=== PATIENT | female | born 1945 | race Caucasian/White ===

== ENCOUNTER 2024-04-13 19:42 | Emergency (ER) | payer OTHER ==
[2024-04-13] MEDS ORDERED: NA CHLORIDE 0.9% 1,000 ML ONE (20:41)
[2024-04-13 20:57] LABS: Absolute Basophils 0.1 K/uL (0-0.5); Absolute Eosinophils 0.2 K/uL (0-0.5); Absolute Lymphocytes (CBC) 3.2 K/uL (0.7-4.9); Absolute Monocytes 0.9 K/uL (0.1-1.3); Absolute Neutrophil 5.7 K/uL (1.8-8.0); Basophils % 0.7 % (0-1.3); Eosinophils % 1.6 % (0-4.4); Hematocrit 40.4 % (36.0-45.0); Hemoglobin 13.4 g/dL (12.0-15.0); Lymphocytes % 32.2 % (15.3-44.8); MCH 30.2 pg (27.0-35.0); MCHC 33.1 g/dL (32.0-36.0); MCV 91.4 fL (80-100); MPV 9.2 fL (7.6-11.3); Monocytes % 9.2 % (3.3-12.3); Neutrophils % 56.3 % (41.7-73.7); Nucleated Red Blood Cells % 0.1 % (0-0); Platelets 208 thou/uL (152-406); RBC Red Blood Cell Count 4.42 M/uL (3.86-4.86); Red Cell Distribution Width 15.4 % (12.1-15.2)
[2024-04-13 21:14] LABS: ALT/SGPT 26 U/L (13-56); Albumin 3.7 g/dL (3.4-5.0); Albumin/Globulin Ratio 1.1 (1.1-1.8); Alkaline Phosphatase 72 U/L (45-117); Anion Gap 7.8 mEq/L (5.0-15.0); BUN Blood Urea Nitrogen 19 mg/dL (7-18); Bicarbonate 26 mEq/L (21-32); Bilirubin Total 0.4 mg/dL (0.2-1.0); Globulin 3.4 g/dL (2.3-3.5); Glomerular Filtration Rate 47 ml/min (=/>90); Glucose Level 102 mg/dL (74-106); Potassium 3.8 mEq/L (3.5-5.1); Protein, Total 7.1 g/dL (6.4-8.2); Sodium Level 140 mEq/L (136-145)
[2024-04-13 21:18] LABS: AST/SGOT < 10 U/L (15-37)
[2024-04-13] MEDS ORDERED: TOBRAMYCIN SULF 0.3% OPTH OINT ONE (21:31)
[2024-04-13] MEDS ORDERED: SMZ./TMP. 800/160 MG TABLET ONE (21:31)
[2024-04-13] MEDS ORDERED: CLINDAMYCIN 900MG/D5W 900 MG/50 ML IVPB IV ONE (21:31)
--- NOTE | 2024-04-13 21:43 | RAD REPORT ---
EXAM DESCRIPTION: CTMaxillofacial W/Cont04/13/2024 9:31 pm CLINICAL HISTORY: Right facial pain and swelling COMPARISON: None. TECHNIQUE: Computed axial tomography of the face obtained with coronal and sagittal reconstruction. 50 cc Isovue-[address] scans are performed using dose optimization technique as appropriate and may include automated exposure control or mA/KV adjustment according to patient size. FINDINGS: Right periorbital stranding. An abscess is not seen. The right globe is normal size and density. No retrobulbar abscess. The parotid and visualized submandibular glands are unremarkable The parapharyngeal fat is clear. No fluid within the sinuses IMPRESSION: Right periorbital cellulitis. An abscess is not seen
--- NOTE | 2024-04-13 22:31 | EDPHYS ---
Physician Documentation [facility] Name: Malgorzata Vizcarra Age: 78 yrs Sex: Female : 1945 Arrival Date: 04/13/2024 Time: 19:42 Bed 11 Private MD: Lee Edmonds HPI: 04/13 22:24 This 78 yrs old Female presents to ER via Ambulatory with complaints of jenn Facial Swelling. 22:24 The patient is experiencing pain, redness, The patient sustained Unknown. to the right jenn eye. Onset: The symptoms/episode began/occurred 5 day(s) ago. Duration: the symptoms are continuous. Aggravated by closing eye, pressure, rubbing, Alleviated by cold application. Associated signs and symptoms: Pertinent positives: None. Pertinent negatives: None. The patient presents with cellulitis of the face and right eye, the patient presents with a swollen area of the right eye. Description: erythematous, fluctuant. Modifying factors: the symptoms are alleviated by remaining still, the symptoms are aggravated by pressure, touching. Historical: - Allergies: 20:02 No Known Allergies; al5 - Home Meds: 20:02 gabapentin 600 mg oral tablet 3 times per day [Active]; ropinirole 2 mg oral tablet 3 al5 times per day [Active]; atorvastatin 40 mg oral tablet 1 tab every evening [Active]; fenofibrate 160 mg oral tablet daily [Active]; oxybutynin chloride 5 mg oral tablet 1 tab 2 times per day [Active]; - PMHx: 20:02 high cholesterol; restless leg syndrome; al5 - Immunization history:: Adult Immunizations up to date. - Infectious Disease History:: Denies. - Social history:: Smoking status: Patient reports the use of cigarette tobacco products, smokes one pack cigarettes per day. - Family history:: not pertinent. ROS: 22:24 Constitutional: Negative for fever, chills, and weight loss, ENT: Negative for injury, jenn pain, and discharge, Neck: Negative for injury, pain, and swelling, Cardiovascular: Negative for chest pain, palpitations, and edema, Respiratory: Negative for shortness of breath, cough, wheezing, and pleuritic chest pain, Abdomen/GI: Negative for abdominal pain, nausea, vomiting, diarrhea, and constipation, Back: Negative for injury and pain, : Negative for injury, bleeding, discharge, and swelling, MS/Extremity: Negative for injury and deformity, Neuro: Negative for headache, weakness, numbness, tingling, and seizure, Psych: Negative for depression, anxiety, suicide ideation, homicidal ideation, and hallucinations, Allergy/Immunology: Negative for hives, rash, and allergies, Endocrine: Negative for neck swelling, polydipsia, polyuria, polyphagia, and marked weight changes, Hematologic/Lymphatic: Negative for swollen nodes, abnormal bleeding, and unusual bruising, 22:24 Eyes: Positive for pain, redness, of the right eyebrow, right upper eyelid and right lower eyelid, Exam: 22:24 Constitutional: This is a well developed, well nourished patient who is awake, alert, jenn and in no acute distress. ENT: Nares patent. No nasal discharge, no septal abnormalities noted. Tympanic membranes are normal and external auditory canals are clear. Oropharynx with no redness, swelling, or masses, exudates, or evidence of obstruction, uvula midline. Mucous membranes moist. Neck: Trachea midline, no thyromegaly or masses palpated, and no cervical lymphadenopathy. Supple, full range of motion without nuchal rigidity, or vertebral point tenderness. No Meningismus. Chest/axilla: Normal chest wall appearance and motion. Nontender with no deformity. No lesions are appreciated. Cardiovascular: Regular rate and rhythm with a normal S1 and S2. No gallops, murmurs, or rubs. Normal PMI, no JVD. No pulse deficits. Respiratory: Lungs have equal breath sounds bilaterally, clear to auscultation and percussion. No rales, rhonchi or wheezes noted. No increased work of breathing, no retractions or nasal flaring. Abdomen/GI: Soft, non-tender, with normal bowel sounds. No distension or tympany. No guarding or rebound. No evidence of tenderness throughout. Back: No spinal tenderness. No costovertebral tenderness. Full range of motion. Skin: Warm, dry with normal turgor. Normal color with no rashes, no lesions, and no evidence of cellulitis. MS/ Extremity: Pulses equal, no cyanosis. Neurovascular intact. Full, normal range of motion. Neuro: Awake and alert, GCS 15, oriented to person, place, time, and situation. Cranial nerves II-XII grossly intact. Motor strength 5/5 in all extremities. Sensory grossly intact. Cerebellar exam normal. Normal gait. Psych: Awake, alert, with orientation to person, place and time. Behavior, mood, and affect are within normal limits. 22:24 Eyes: Periorbital structures: cellulitis, that is moderate, on the right upper eyelid, medial canthus of right eye, lateral canthus of right eye and right lower eyelid, erythema, swelling, Pupils: no acute changes, equal, round, and reactive to light and accomodation, Extraocular movements: intact throughout, Conjunctiva: normal, Corneas: are normal, Sclera: no appreciated abnormality, Lids and lashes: appear normal, Vital Signs: 19:56 BP 138 / 86; Pulse 78; Resp 16; Temp 98.7; Pulse Ox 91% on R/A; Weight 67.13 kg; Height al5 5 ft. 3 in. ; 22:44 BP 122 / 70; Pulse 66; Resp 16; Temp 97.9(TE); Pulse Ox 95% on R/A; tl4 19:56 Body Mass Index 26.22 (67.13 kg, 160.02 cm) al5 MDM: 20:16 Patient medically screened. [facility] 22:27 Differential diagnosis: abscess, allergic reaction, cellulitis, insect bite. Data [facility] reviewed: vital signs, nurses notes, lab test result(s), radiologic studies, CT scan. Consideration of Admission/Observation Escalation of care including admission/observation considered. I considered the following discharge prescriptions or medication management in the emergency department Medications were administered in the Emergency Department. See MAR. Independent interpretation of the following test(s) in the Emergency Department CT Scan: My interpretation is ct facial, no abscess. Test considered but Not performed: Ultrasound no usg. Care significantly affected by the following chronic conditions: high chlesterol, rls. 04/13 20:17 Order name: CBC with Diff; Complete Time: 21:07 [facility] 04/13 20:17 Order name: Comprehensive Metabolic Panel; Complete Time: 21:46 [facility] 04/13 20:17 Order name: CT Maxillofacial W/cont; Complete Time: 21:46 jenn Administered Medications: 20:50 Drug: NS 0.9% IV 1000 ml IV at 1 bolus Per protocol; 1000 mL bolus Route: IV; Rate: 1 ha1 bolus; Site: right antecubital; Delivery: Primary tubing; 22:43 Follow up: Response: No adverse reaction; IV Status: Completed infusion; IV Intake: tl4 1000ml 21:47 Drug: Tobramycin Ophthalmic Ointment (0.3 %) 1 inches Ophthalmic once Route: tl4 Ophthalmic; Site: right eye; 22:43 Follow up: Response: No adverse reaction tl4 21:47 Drug: Clindamycin IVPB 900 mg IVPB once over 30 mins; (mix in 50 mL) Route: IVPB; Rate: tl4 100 ml/hr; Infused Over: 30 mins; Site: right antecubital; Delivery: Primary tubing; 22:43 Follow up: Response: No adverse reaction; IV Status: Completed infusion; IV Intake: [id number] 21:47 Drug: Trimethoprim-Sulfamethoxazole PO (160 mg-800 mg (DS) 1 tablet PO once Route: PO; tl4 22:43 Follow up: Response: No adverse reaction tl4 22:42 Drug: Clindamycin PO 300 mg PO once Route: PO; tl4 22:42 Follow up: Response: No adverse reaction; Medication administered at discharge. tl4 Disposition Summary: 04/13/24 22:31 Discharge Ordered Notes: Location: Home [facility] Problem: new jenn Symptoms: have improved jenn Condition: Stable jenn Diagnosis - Cellulitis and acute lymphangitis of face - right eye , preseptal cellulitis jenn Followup: jenn - With: Private Physician - When: 2 - 3 days - Reason: Recheck today's complaints, Continuance of care, Re-evaluation by your physician Followup: jenn - With: Oumar Dyer MD - When: 2 - 3 days - Reason: Recheck today's complaints, Re-evaluation by your physician Discharge Instructions: - Discharge Summary Sheet jenn - Cellulitis, Adult jenn - Cellulitis, Adult, [id number] [facility] - Preseptal Cellulitis, Adult [facility] Forms: - Medication Reconciliation Form [facility] - Antibiotic Education jenn - Prescription Opioid Use jenn - Patient Portal Instructions [facility] - Leadership Thank You Letter [facility] Prescriptions: - Tobrex 0.3 % Ophthalmic ointment - instill 1 application OPHTHALMIC route every day at bedtime for 7 days; 3.5 jenn gram; Refills: 0, Product Selection Permitted - Clindamycin HCl 300 mg Oral Capsule - take 1 capsule ORAL route every 6 hours for 10 days; 40 capsule; Refills: 0, jenn Product Selection Permitted - Bactrim DS 800-160 mg Oral Tablet - take 1 tablet ORAL route every 12 hours for 10 days; 20 tablet; Refills: 0, jenn Product Selection Permitted Signatures: Dispatcher [employer] Lee Garay MD MD cha Ayala, Heidy, RN RN ha1 Larry Sherwood RN RN tl4 Althea Bonds RN RN al5
--- NOTE | 2024-04-13 22:31 | ER ---
Nurse's Notes [facility] Name: Malgorzata Vizcarra Age: 78 yrs Sex: Female : 1945 Arrival Date: 04/13/2024 Time: 19:42 Bed 11 Private MD: Diagnosis: Cellulitis and acute lymphangitis of face-right eye , preseptal cellulitis Presentation: 04/13 19:56 Chief complaint: Patient states: c/o facial swelling to R side of face around eye area. al5 Pt states that she was watching television, then went outside and felt and realized a big bump form around her eye. Pt states it has been getting progressively worse. Pt denies any allergies or being bit by any bugs. Coronavirus screen: At this time, the client does not indicate any symptoms associated with coronavirus-19. Ebola Screen: No symptoms or risks identified at this time. Initial Sepsis Screen: Does the patient meet any 2 criteria? No. Patient's initial sepsis screen is negative. Does the patient have a suspected source of infection? No. Patient's initial sepsis screen is negative. Risk Assessment: Do you want to hurt yourself or someone else? Patient reports no desire to harm self or others. Onset of symptoms was April 12, 2024. 19:56 Method Of Arrival: Ambulatory al5 19:56 Acuity: IVORY 3 al5 Triage Assessment: 20:07 General: Appears in no apparent distress. Behavior is calm, cooperative. Pain: al5 Complains of pain in right eye Pain currently is 7 out of 10 on a pain scale. Pain began last night Is continuous. EENT: Eyes swelling around R eye starting last night, patient states it is very tender and sore, about 7/10 pain. Neuro: No deficits noted. Level of Consciousness is awake, alert, obeys commands, Oriented to person, place, time, situation, Gait is steady, Speech is normal, Facial symmetry appears normal. Cardiovascular: No deficits noted. Patient's skin is warm and dry. Respiratory: No deficits noted. Airway is patent Trachea midline Respiratory effort is even, unlabored, Respiratory pattern is regular, symmetrical. GI: No deficits noted. No signs and/or symptoms were reported involving the gastrointestinal system. : No deficits noted. No signs and/or symptoms were reported regarding the genitourinary system. Derm: Skin is intact, Skin is pink, warm \T\ dry. normal, Skin temperature is warm. Musculoskeletal: No deficits noted. No signs and/or symptoms reported regarding the musculoskeletal system. Historical: - Allergies: 20:02 No Known Allergies; al5 - Home Meds: 20:02 gabapentin 600 mg oral tablet 3 times per day [Active]; ropinirole 2 mg oral tablet 3 al5 times per day [Active]; atorvastatin 40 mg oral tablet 1 tab every evening [Active]; fenofibrate 160 mg oral tablet daily [Active]; oxybutynin chloride 5 mg oral tablet 1 tab 2 times per day [Active]; - PMHx: 20:02 high cholesterol; restless leg syndrome; al5 - Immunization history:: Adult Immunizations up to date. - Infectious Disease History:: Denies. - Social history:: Smoking status: Patient reports the use of cigarette tobacco products, smokes one pack cigarettes per day. - Family history:: not pertinent. Screenin:52 [facility] ED Fall Risk Assessment (Adult) History of falling in the last 3 months, ha1 including since admission No falls in past 3 months (0 pts) Confusion or Disorientation No (0 pts) Intoxicated or Sedated No (0 pts) Impaired Gait No (0 pts) Mobility Assist Device Used No (0 pt) Altered Elimination No (0 pt) Score/Fall Risk Level 0 - 2 = Low Risk Oriented to surroundings, Maintained a safe environment, Educated pt \T\ family on fall prevention, incl call for assistance when getting out of bed, Assessed \T\ reinforced patient's understanding of fall precautions. Abuse screen: Denies threats or abuse. Denies injuries from another. Nutritional screening: No deficits noted. Tuberculosis screening: No symptoms or risk factors identified. Assessment: 20:51 General: Appears in no apparent distress. Behavior is calm, cooperative. Pain: ha1 Complains of pain in right eye. Neuro: Level of Consciousness is awake, alert, obeys commands, Oriented to person, place, time, situation, Moves all extremities. Full function Gait is steady, Speech is normal. Cardiovascular: Capillary refill < 3 seconds Patient's skin is warm and dry. Respiratory: Airway is patent Respiratory effort is even, unlabored, Respiratory pattern is regular, symmetrical, Breath sounds are clear bilaterally. GI: No signs and/or symptoms were reported involving the gastrointestinal system. : No signs and/or symptoms were reported regarding the genitourinary system. EENT: No signs and/or symptoms were reported regarding the EENT system. Derm: Skin is red. Musculoskeletal: No signs and/or symptoms reported regarding the musculoskeletal system. 22:44 Reassessment: Patient and/or family updated on plan of care and expected duration. Pain tl4 level reassessed. Patient is alert, oriented x 3, equal unlabored respirations, skin warm/dry/pink. Vital Signs: 19:56 BP 138 / 86; Pulse 78; Resp 16; Temp 98.7; Pulse Ox 91% on R/A; Weight 67.13 kg; Height al5 5 ft. 3 in. ; 22:44 BP 122 / 70; Pulse 66; Resp 16; Temp 97.9(TE); Pulse Ox 95% on R/A; tl4 19:56 Body Mass Index 26.22 (67.13 kg, 160.02 cm) al5 ED Course: 19:45 Patient arrived in ED. ra3 20:02 Triage completed. al5 20:10 Arm band placed on right wrist. Patient placed in an exam room, on a stretcher. al5 20:16 Lee Johnson MD is Attending Physician. jenn 20:50 Tiffanie Grimm RN is Primary Nurse. ha1 20:51 Comprehensive Metabolic Panel Sent. ha1 20:51 CBC with Diff Sent. ha1 20:52 Patient has correct armband on for positive identification. Bed in low position. Call ha1 light in reach. Side rails up X 1. Adult w/ patient. Provided Education on: ed process, call del real. Client placed on continuous cardiac and pulse oximetry monitoring. NIBP monitoring applied. Door closed. Noise minimized. Moved to private room. Warm blanket given. Pillow given. 20:53 No provider procedures requiring assistance completed. Initial lab(s) drawn, by ky, ha1 sent to lab. Inserted saline lock: 22 gauge in right antecubital area, using aseptic technique. Blood collected. 21:33 CT Maxillofacial W/cont In Process Unspecified. EDMS 22:30 Oumar Dyer MD is Referral Physician. jenn 22:44 IV discontinued, intact, bleeding controlled, No redness/swelling at site. Pressure tl4 dressing applied. Administered Medications: 20:50 Drug: NS 0.9% IV 1000 ml IV at 1 bolus Per protocol; 1000 mL bolus Route: IV; Rate: 1 ha1 bolus; Site: right antecubital; Delivery: Primary tubing; 22:43 Follow up: Response: No adverse reaction; IV Status: Completed infusion; IV Intake: tl4 1000ml 21:47 Drug: Tobramycin Ophthalmic Ointment (0.3 %) 1 inches Ophthalmic once Route: tl4 Ophthalmic; Site: right eye; 22:43 Follow up: Response: No adverse reaction tl4 21:47 Drug: Clindamycin IVPB 900 mg IVPB once over 30 mins; (mix in 50 mL) Route: IVPB; Rate: tl4 100 ml/hr; Infused Over: 30 mins; Site: right antecubital; Delivery: Primary tubing; 22:43 Follow up: Response: No adverse reaction; IV Status: Completed infusion; IV Intake: [id number] 21:47 Drug: Trimethoprim-Sulfamethoxazole PO (160 mg-800 mg (DS) 1 tablet PO once Route: PO; tl4 22:43 Follow up: Response: No adverse reaction tl4 22:42 Drug: Clindamycin PO 300 mg PO once Route: PO; tl4 22:42 Follow up: Response: No adverse reaction; Medication administered at discharge. tl4 Medication: 20:52 VIS not applicable for this client. ha1 Intake: 22:43 IV: 50ml; Total: 50ml. tl4 22:43 IV: 1000ml; Total: 1050ml. tl4 Outcome: 22:31 Discharge ordered by . jenn 22:44 Discharged to home ambulatory, with family, tl4 22:44 Condition: stable 22:44 Discharge instructions given to patient, family, Instructed on discharge instructions, follow up and referral plans. medication usage, Demonstrated understanding of instructions, follow-up care, medications, Prescriptions given X 3, 22:45 Patient left the ED. tl4 Signatures: Dispatcher [employer] EDLee Puente MD MD cha Ayala, Heidy RN RN ha1 Larry Sherwood RN RN tl4 Lauren Shepherd ra3 Althea Bonds RN RN al5
[2024-04-13 23:18] VITALS: BP 122/70; TEMP 97.9; O2SAT 95
== END 2024-04-13 22:45 | disposition home or self-care (01) ==
LOC: ER 19:42
DX: L03.213 Periorbital cellulitis (principal); L03.212 Acute lymphangitis of face; F17.210 Nicotine dependence, cigarettes, uncomplicated
CPT/HCPCS: 96365; 96361; 85025; 36415; 80053; 70487; 99284; Q9967; J7030

== ENCOUNTER 2024-07-18 16:36 | Emergency (ER) | payer OTHER ==
--- NOTE | 2024-07-18 17:03 | EDPHYS ---
Physician Documentation [facility] Name: Malgorzata Vizcarra Age: 79 yrs Sex: Female : 1945 Arrival Date: 07/18/2024 Time: 16:36 Bed IW1 Private MD: ED Physician Ralph Licona HPI: 07/18 16:52 This 79 yrs old Female presents to ER via Ambulatory with complaints of Laceration - rn LRF. 16:52 The patient has a laceration related to: handling glass. The laceration(s) is(are) rn located on the dorsal aspect of middle phalanx of left ring finger. Onset: The symptoms/episode began/occurred 2 day(s) ago. The patient has not experienced similar symptoms in the past. 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 Injury was 2 days ago. She put a butterfly bandage and has been putting Neosporin on it. Noticed increased redness and swelling today, no fever, no drainage. Sent to the ER for further evaluation.. Historical: - Allergies: 16:46 No Known Allergies; tm6 - PMHx: 16:46 High Cholesterol; restless leg syndrome; tm6 - PSHx: 16:46 shoulder (restless leg syndrome); knee (restless leg syndrome); right foot (restless tm6 leg syndrome); Total abdominal hysterectomy; Cholecystectomy; - Immunization history:: Client reports receiving the 2nd dose of the Covid vaccine. - Infectious Disease History:: Denies. - Social history:: Smoking status: Patient reports the use of cigarette tobacco products, smokes one pack cigarettes per day. Patient uses Patient/guardian denies using alcohol. - Family history:: not pertinent. - Hospitalizations: : No recent hospitalization is reported. ROS: 16:52 Constitutional: Negative for fever, chills, and weight loss, MS/Extremity: Positive for rn laceration and swelling to the left ring finger Exam: 16:52 Constitutional: This is a well developed, well nourished patient who is awake, alert, rn and in no acute distress. MS/ Extremity: Pulses equal, no cyanosis. Neurovascular intact. 3 cm chevron shaped laceration to the dorsum of the left ring finger middle phalanx, mild erythema and swelling, no drainage or purulence. Vital Signs: 16:44 BP 124 / 88; Pulse 78; Resp 18; Temp 97(TE); Pulse Ox 94% on R/A; MAP 98 mmHg; Weight tm6 68.04 kg; Height 5 ft. 3 in. ; Pain 4/10; 16:44 Body Mass Index 26.57 (68.04 kg, 160.02 cm) tm6 16:44 Pain Scale: Adult tm6 MDM: 16:47 Patient medically screened. rn 17:00 Differential diagnosis: superficial laceration. Data reviewed: vital signs, nurses rn notes, and as a result, I will discharge patient. Counseling: I had a detailed discussion with the patient and/or guardian regarding the historical points, exam findings, and any diagnostic results supporting the discharge/admit diagnosis, the need for outpatient follow up, to return to the emergency department if symptoms worsen or persist or if there are any questions or concerns that arise at home. Refusal of service: The patient/guardian displays adequate decision making capability and despite a detailed discussion of alternatives, benefits, risks, and consequences refuses: all X-rays. ED course: No foreign bodies identified or palpated. There was 1 area where patient was concerned, was just skin and it was taken off using forceps. No glass identified. Offered x-ray and patient declines. Wedding ring was easily removed. Will discharge home with antibiotics and return precautions.. Administered Medications: No medications were administered Disposition Summary: 07/18/24 17:02 Discharge Ordered Notes: Location: Home rn Problem: new rn Symptoms: are unchanged rn Condition: Stable rn Diagnosis - Laceration without foreign body of left ring finger without damage to nail rn Followup: rn - With: Private Physician - When: As needed - Reason: Recheck today's complaints, Re-evaluation by your physician Discharge Instructions: - Discharge Summary Sheet rn - Laceration Care, Adult rn Forms: - Medication Reconciliation Form rn - Antibiotic rn circulating - Prescription Opioid Use rn - Patient Portal Instructions rn - Leadership Thank You Letter rn Prescriptions: - Augmentin 875-125 mg Oral Tablet - take 1 tablet ORAL route every 12 hours for 10 days; 20 tablet; Refills: 0, rn Product Selection Permitted Signatures: Licona, Ralph, MD MD rn Huma, Tawney, RN RN tm6
--- NOTE | 2024-07-18 17:03 | ER ---
Nurse's Notes [facility] Name: Malgorzata Vizcarra Age: 79 yrs Sex: Female : 1945 Arrival Date: 07/18/2024 Time: 16:36 Bed IW1 Private MD: Diagnosis: Laceration without foreign body of left ring finger without damage to nail Presentation: 07/18 16:45 Chief complaint: Patient states: a few days ago, cut my left ring finger when I dropped tm6 a glass washing dishes. I work with Dr. Joiner and he said to come here and get it checked out. Coronavirus screen: Vaccine status: Patient reports receiving the 2nd dose of the covid vaccine. Ebola Screen: Patient negative for fever greater than or equal to 101.5 degrees Fahrenheit, and additional compatible Ebola Virus Disease symptoms Patient denies exposure to infectious person. Patient denies travel to an Ebola-affected area in the 21 days before illness onset. No symptoms or risks identified at this time. Complicating Factors: There are no complicating factors for this patient. Initial Sepsis Screen: Does the patient meet any 2 criteria? No. Patient's initial sepsis screen is negative. Does the patient have a suspected source of infection? No. Patient's initial sepsis screen is negative. Risk Assessment: Do you want to hurt yourself or someone else? Patient reports no desire to harm self or others. Onset of symptoms was July 15, 2024. 16:45 Method Of Arrival: Ambulatory tm6 16:45 Acuity: IVORY 4 tm6 Triage Assessment: 16:46 General: Appears in no apparent distress. Behavior is calm, cooperative. Pain: tm6 Complains of pain in dorsal aspect of middle phalanx of left ring finger Pain currently is 4 out of 10 on a pain scale. EENT: No signs and/or symptoms were reported regarding the EENT system. Neuro: Level of Consciousness is awake, alert, obeys commands, Oriented to person, place, time, situation. Cardiovascular: Patient's skin is warm and dry. Respiratory: Airway is patent Respiratory effort is even, unlabored, Respiratory pattern is regular, symmetrical. GI: No signs and/or symptoms were reported involving the gastrointestinal system. Abdomen is flat, non-distended. : No signs and/or symptoms were reported regarding the genitourinary system. Derm: Wound noted dorsal aspect of middle phalanx of left ring finger Wound is laceration from a few days ago. Musculoskeletal: No signs and/or symptoms reported regarding the musculoskeletal system. Injury Description: Laceration sustained to dorsal aspect of middle phalanx of left ring finger is jagged, was sustained 2 days ago. is bleeding no active bleeding noted. Historical: - Allergies: 16:46 No Known Allergies; tm6 - PMHx: 16:46 High Cholesterol; restless leg syndrome; tm6 - PSHx: 16:46 shoulder (restless leg syndrome); knee (restless leg syndrome); right foot (restless tm6 leg syndrome); Total abdominal hysterectomy; Cholecystectomy; - Immunization history:: Client reports receiving the 2nd dose of the Covid vaccine. - Infectious Disease History:: Denies. - Social history:: Smoking status: Patient reports the use of cigarette tobacco products, smokes one pack cigarettes per day. Patient uses Patient/guardian denies using alcohol. - Family history:: not pertinent. - Hospitalizations: : No recent hospitalization is reported. Screenin:00 [facility] ED Fall Risk Assessment (Adult) History of falling in the last 3 months, tm6 including since admission No falls in past 3 months (0 pts) Confusion or Disorientation No (0 pts) Intoxicated or Sedated No (0 pts) Impaired Gait No (0 pts) Mobility Assist Device Used No (0 pt) Altered Elimination No (0 pt) Score/Fall Risk Level 0 - 2 = Low Risk Oriented to surroundings, Maintained a safe environment, Educated pt \T\ family on fall prevention, incl call for assistance when getting out of bed. Abuse screen: Denies threats or abuse. Denies injuries from another. Nutritional screening: No deficits noted. Tuberculosis screening: No symptoms or risk factors identified. Assessment: 17:00 Reassessment: see triage assessment. tm6 Vital Signs: 16:44 BP 124 / 88; Pulse 78; Resp 18; Temp 97(TE); Pulse Ox 94% on R/A; MAP 98 mmHg; Weight tm6 68.04 kg; Height 5 ft. 3 in. ; Pain 4/10; 16:44 Body Mass Index 26.57 (68.04 kg, 160.02 cm) tm6 16:44 Pain Scale: Adult tm6 ED Course: 16:39 Patient arrived in ED. ra3 16:46 Triage completed. tm6 16:46 Arm band placed on right wrist. tm6 16:47 Ralph Licona MD is Attending Physician. rn 17:00 Patient has correct armband on for positive identification. Provided Education on: use tm6 of prescription med. 17:00 No provider procedures requiring assistance completed. Patient did not have IV access tm6 during this emergency room visit. Administered Medications: No medications were administered Medication: 17:00 VIS not applicable for this client. tm6 Outcome: 17:02 Discharge ordered by . rn 17:05 Discharged to home ambulatory, with friend, tm6 17:05 Condition: stable 17:05 Discharge instructions given to patient, friend, Instructed on discharge instructions, follow up and referral plans. medication usage, Demonstrated understanding of instructions, follow-up care, medications, Prescriptions given X 1, 17:06 Patient left the ED. tm6 Signatures: Ralph Licona MD MD rn Masterson, Tawney, RN RN tm6 [facility]
[2024-07-19 07:08] VITALS: BP 124/88; TEMP 97; O2SAT 94
== END 2024-07-18 17:06 | disposition home or self-care (01) ==
LOC: ER 16:36
DX: S61.215A Laceration without foreign body of left ring finger without damage to nail, initial encounter (principal); E78.00 Pure hypercholesterolemia, unspecified; G25.81 Restless legs syndrome; F17.210 Nicotine dependence, cigarettes, uncomplicated; W25.XXXA Contact with sharp glass, initial encounter; Y93.G1 Activity, food preparation and clean up; Y92.010 Kitchen of single-family (private) house as the place of occurrence of the external cause
CPT/HCPCS: 99283

== ENCOUNTER 2024-12-17 08:20 | Emergency (ER) | payer OTHER ==
--- NOTE | 2024-12-17 09:31 | RAD REPORT ---
EXAMINATION: CT CHEST WITHOUT CONTRAST CLINICAL INDICATION: anterior/inferior left rib pain/trauma TECHNIQUE: Routine CT scan of the chest without intravenous contrast. One or more of the following do se reduction techniques were used: Automated exposure control, adjustment of the mA and/or kV according to patient size, and/or iterative reconstruction. Unless otherwise specified, incidental fi ndings do not require dedicated imaging follow-up. COMPARISON: No prior exam. FINDINGS: LOWER NECK: Visualized thyroid gland and soft tissues are normal. LUNGS: Mild to moderate diffuse COPD. 8 mm noncalcified nodule seen medial left lung base. PLEURA: No pleural effusion. No pneumothorax. . MEDIASTINUM AND LYMPH NODES: Small upper limit of normal lymph nodes in the mediastinum. 22 mm soft t issue lesion prevascular space of the mediastinum. OSSEOUS STRUCTURES AND CHEST WALL: Right shoulder hardware. Degenerative changes thoracic spine. UPPER ABDOMEN: No significant abnormalities. IMPRESSION: No acute finding demonstrated. 22 mm soft tissue lesion prevascular space is indeterminant, perhaps enlarged lymph node. Anterior me diastinal mass is also a possibility. 8 mm nodule medial left lung base with mild to moderate COPD. Non-contrast chest CT at 6-12 months, then non-contrast chest CT at 18-24 months. Note: These guidelines do not apply to patients younger than 35 years, immunocompromised patients, an d patients with cancer. F/u in patients with significant comorbidities as clinically warranted. For lung cancer screening, adhere to Lung-RADS guidelines. Reference: Radiology. 2017 Raul; 284(1):228-243 Examination limited by lack of IV contrast.
--- NOTE | 2024-12-17 09:51 | ER ---
Nurse's Notes [facility] Name: Malgorzata Vizcarra Age: 79 yrs Sex: Female : 1945 Arrival Date: 12/17/2024 Time: 08:20 Bed 12 Private MD: Diagnosis: Contusion of thorax Presentation: 12/17 09:01 Chief complaint: Patient states: "I leaned over the hot tub to get some water out and aa5 ever since then I've been having this pain". Pt c/o pain to LUQ. Reports incident and pain occurred 3 days ago. Coronavirus screen: At this time, the client does not indicate any symptoms associated with coronavirus-19. Ebola Screen: Patient denies travel to an Ebola-affected area in the 21 days before illness onset. Initial Sepsis Screen: Does the patient meet any 2 criteria? No. Patient's initial sepsis screen is negative. Does the patient have a suspected source of infection? No. Patient's initial sepsis screen is negative. Risk Assessment: Do you want to hurt yourself or someone else? Patient reports no desire to harm self or others. Onset of symptoms was 2024. 09:01 Method Of Arrival: Ambulatory aa5 09:01 Acuity: IVORY 3 aa5 Historical: - Allergies: 09:04 No Known Allergies; aa5 - PMHx: 09:04 High Cholesterol; restless leg syndrome; aa5 - PSHx: 09:04 Cholecystectomy; knee (ss); right foot (ss); Shoulder (ss); Total abdominal aa5 hysterectomy; - Immunization history:: Adult Immunizations unknown. - Infectious Disease History:: Denies. - Social history:: Smoking status: Patient reports the use of cigarette tobacco products. - Family history:: not pertinent. - Hospitalizations: : No recent hospitalization is reported. Screenin:01 [facility] ED Fall Risk Assessment (Adult) History of falling in the last 3 months, aa5 including since admission No falls in past 3 months (0 pts) Confusion or Disorientation No (0 pts) Intoxicated or Sedated No (0 pts) Impaired Gait No (0 pts) Mobility Assist Device Used No (0 pt) Altered Elimination No (0 pt) Score/Fall Risk Level 0 - 2 = Low Risk Oriented to surroundings, Maintained a safe environment, Educated pt \\T\\ family on fall prevention, incl call for assistance when getting out of bed, Assessed \\T\\ reinforced patient's understanding of fall precautions. Abuse screen: Denies threats or abuse. Nutritional screening: No deficits noted. Tuberculosis screening: No symptoms or risk factors identified. Assessment: 09:02 General: Appears uncomfortable, Behavior is calm, cooperative. Pain: Complains of pain aa5 in left upper quadrant Pain currently is 10 out of 10 on a pain scale. Quality of pain is described as sharp, shooting, Pain began 2-3 days ago. Is intermittent, Aggravated by "taking a deep breath". Neuro: Level of Consciousness is awake, alert, obeys commands, Oriented to person, place, time, situation. Cardiovascular: Patient's skin is warm and dry. Respiratory: Airway is patent Respiratory effort is even, unlabored, Respiratory pattern is regular, symmetrical. GI: Abdomen is non-distended, Bowel sounds present X 4 quads. Abd is soft and non tender X 4 quads. : No signs and/or symptoms were reported regarding the genitourinary system. EENT: No signs and/or symptoms were reported regarding the EENT system. Derm: Skin is pink, warm \\T\\ dry. Musculoskeletal: Range of motion: intact in all extremities. 09:02 Injury Description: Denies fall. aa5 10:08 Reassessment: Patient is alert, oriented x 3, equal unlabored respirations, skin aa5 warm/dry/pink. 10:20 Reassessment: Patient is alert, oriented x 3, equal unlabored respirations, skin aa5 warm/dry/pink. Vital Signs: 09:01 BP 141 / 92; Pulse 78; Resp 14 S; Temp 97.6(TE); Pulse Ox 95% on R/A; Weight 68.04 kg aa5 (R); Height 5 ft. 3 in. (R); 09:01 Body Mass Index 26.57 (68.04 kg, 160.02 cm) aa5 ED Course: 08:22 Patient arrived in ED. mr 08:55 Ralph Licona MD is Attending Physician. rn 09:01 Arm band placed on. aa5 09:03 Triage completed. aa5 09:17 CT Chest Wo Con In Process Unspecified. EDMS 10:02 Eunice Jimenez, RN is Primary Nurse. aa5 10:08 Patient has correct armband on for positive identification. Bed in low position. Call aa5 light in reach. Side rails up X 1. 10:20 No provider procedures requiring assistance completed. Patient did not have IV access aa5 during this emergency room visit. Administered Medications: 10:08 Drug: Ketorolac IM 30 mg IM once Route: IM; Site: right gluteus; aa5 10:20 Follow up: Response: No adverse reaction aa5 Medication: 10:20 VIS not applicable for this client. aa5 Outcome: 09:50 Discharge ordered by . rn 10:20 Discharged to home ambulatory, aa5 10:20 Condition: stable 10:20 Discharge instructions given to patient, Instructed on discharge instructions, follow up and referral plans. medication usage, Demonstrated understanding of instructions, follow-up care, medications, Prescriptions given X 2, 10:25 Patient left the ED. aa5 Signatures: Dispatcher [employer] EDMS Malgorzata Yusuf, Reg Reg mr Ralph Licona MD MD rn Calderon, Audri, RN RN aa5 Corrections: (The following items were deleted from the chart) 09:04 09:01 BP 141 / 92; Pulse 78bpm; Resp 14bpm; Spontaneous; Pulse Ox 95% RA; Temp 97.6F aa5 Temporal; aa5
--- NOTE | 2024-12-17 09:51 | EDPHYS ---
Physician Documentation [facility] Name: Malgorzata Vizcarra Age: 79 yrs Sex: Female : 1945 Arrival Date: 12/17/2024 Time: 08:20 Bed 12 Private MD: ED Physician Ralph Licona HPI: 12/17 09:24 This 79 yrs old Female presents to ER via Ambulatory with complaints of Rib pain. rn 09:24 The patient or guardian reports chest pain that is located primarily in the anterior rn chest wall. Onset: The symptoms/episode began/occurred 3 day(s) ago. The pain does not radiate. Associated signs and symptoms: Pertinent negatives: abdominal pain, cough, diaphoresis, shortness of breath, syncope, vomiting. The chest pain is described as aching, sharp. Duration: The patient or guardian reports multiple episodes, that are intermittent. Modifying factors: The symptoms are alleviated by nothing. the symptoms are aggravated by activity, breathing, movement, palpation of area, twisting torso. Severity of pain: At its worst the pain was moderate in the emergency department the pain is unchanged. The patient has not experienced similar symptoms in the past. Patient reports 3 days ago leaned over the edge of a bathtub, left anterior inferior ribs were in contact with the edge of the bathtub and she felt immediate pain. Has been having pain on the left side of the chest since then that is worse with deep breath/cough/palpation/movement. No fever or chills.. Historical: - Allergies: 09:04 No Known Allergies; aa5 - PMHx: 09:04 High Cholesterol; restless leg syndrome; aa5 - PSHx: 09:04 Cholecystectomy; knee (ss); right foot (ss); Shoulder (ss); Total abdominal aa5 hysterectomy; - Immunization history:: Adult Immunizations unknown. - Infectious Disease History:: Denies. - Social history:: Smoking status: Patient reports the use of cigarette tobacco products. - Family history:: not pertinent. - Hospitalizations: : No recent hospitalization is reported. ROS: 09:24 Constitutional: Negative for fever, chills, and weight loss, Cardiovascular: Positive rn for left-sided chest pain Respiratory: Negative for shortness of breath, cough, wheezing Abdomen/GI: Negative for abdominal pain, nausea, vomiting, diarrhea, and constipation, MS/Extremity: Negative for injury and deformity, Skin: Negative for injury, rash, and discoloration, Neuro: Negative for headache, weakness, numbness, tingling, and seizure, Exam: 09:24 Constitutional: This is a well developed, well nourished patient who is awake, alert, rn splinting and holding left side of chest with left arm. Chest/axilla: Tender to left anterior inferior ribs/chest wall without contusion or crepitus Cardiovascular: Regular rate and rhythm. No pulse deficits. Respiratory: No increased work of breathing, no retractions or nasal flaring. Abdomen/GI: Soft, nontender Vital Signs: 09:01 BP 141 / 92; Pulse 78; Resp 14 S; Temp 97.6(TE); Pulse Ox 95% on R/A; Weight 68.04 kg aa5 (R); Height 5 ft. 3 in. (R); 09:01 Body Mass Index 26.57 (68.04 kg, 160.02 cm) aa5 MDM: 08:55 Medical Screening Exam initiated rn 09:49 Differential diagnosis: Blunt Chest Trauma Chest Wall Contusion Rib Fracture. Data rn reviewed: vital signs, nurses notes, radiologic studies, CT scan, and as a result, I will discharge patient. Counseling: I had a detailed discussion with the patient and/or guardian regarding the historical points, exam findings, and any diagnostic results supporting the discharge/admit diagnosis, radiology results, the need for outpatient follow up, to return to the emergency department if symptoms worsen or persist or if there are any questions or concerns that arise at home. Special discussion: I discussed with the patient/guardian in detail that at this point there is no indication for admission to the hospital. It is understood, however, that if the symptoms persist or worsen the patient needs to return immediately for re-evaluation. ED course: CT chest findings without acute findings. Discussed findings of possible nodules versus mass and COPD. Patient is here for traumatic chest pain, will discharge with return precautions and PCP follow-up. Copy of CT findings printed and handed to patient. I have personally reviewed all of the results, including but not limited to blood tests and imaging deemed necessary to safely discharge this patient at this time. All results given to and printed out for patient. I personally went over all the results with the patient and answered all questions. Patient will follow-up with PCP and or specialist as discussed. Return precautions given and understood.. 12/17 09:04 Order name: CT Chest Wo Con; Complete Time: 09:35 rn Administered Medications: 10:08 Drug: Ketorolac IM 30 mg IM once Route: IM; Site: right gluteus; aa5 10:20 Follow up: Response: No adverse reaction aa5 Disposition Summary: 12/17/24 09:50 Discharge Ordered Notes: Location: Home rn Problem: new rn Symptoms: have improved rn Condition: Stable rn Diagnosis - Contusion of thorax rn Followup: rn - With: Private Physician - When: As needed - Reason: Recheck today's complaints, Re-evaluation by your physician Discharge Instructions: - Discharge Summary Sheet rn - Chest Contusion, Adult rn - Pulmonary Nodule rn Forms: - Medication Reconciliation Form rn - Antibiotic hand pattern marker - Prescription Opioid Use rn - Patient Portal Instructions rn - Leadership Thank You Letter rn Prescriptions: - Tramadol 50 mg Oral Tablet - take 1 tablet ORAL route every 8 hours as needed; 12 tablet; Refills: 0, rn Product Selection Permitted - Cyclobenzaprine 5 mg Oral tablet - take 1 tablet ORAL route 2 times per day As needed; 15 tablet; Refills: 0, rn Product Selection Permitted Signatures: Dispatcher [employer] Ralph Norton MD MD rn Calderon, Audri, RN RN aa5 Corrections: (The following items were deleted from the chart) 09:05 09:05 Thorax Wo Con+[id number] ordered. EDMS ED
[2024-12-17] MEDS ORDERED: KETOROLAC 30 MG/ML INJ ONE (10:04)
[2024-12-17 10:32] VITALS: BP 141/92; TEMP 97.6; O2SAT 95
== END 2024-12-17 10:25 | disposition home or self-care (01) ==
LOC: ER 08:20
DX: S20.212A Contusion of left front wall of thorax, initial encounter (principal); Z72.0 Tobacco use
CPT/HCPCS: 71250; Q9967; 96372; 99284

== ENCOUNTER 2025-02-09 13:03 | Emergency (ER) | payer OTHER ==
[2025-02-09] MEDS ORDERED: KETOROLAC 30 MG/ML INJ ONE (13:17)
[2025-02-09] MEDS ORDERED: HYDROCODONE/APAP 5/325 MG TAB ONE (13:17)
--- NOTE | 2025-02-09 14:28 | RAD REPORT ---
EXAMINATION: Shoulder Left 2+ Views VIEWS: As above CLINICAL INDICATION: Female, 79 years old. PAIN COMPARISON: No prior exam. IMPRESSION: Left anterior inferior shoulder dislocation. No fracture identified.
--- NOTE | 2025-02-09 14:29 | RAD REPORT ---
EXAMINATION: Humerus Left VIEWS: Two views CLINICAL INDICATION: Female, 79 years old. PAIN COMPARISON: No prior exam. IMPRESSION: Left anterior inferior shoulder dislocation. No fracture identified.
[2025-02-09] MEDS ORDERED: ONDANSETRON 4 MG/2 ML VIAL ONE (14:47)
[2025-02-09] MEDS ORDERED: propofoL 200 MG/20 ML VIAL IV ONE (14:47)
[2025-02-09] MEDS ORDERED: NA CHLORIDE 0.9% 500 ML ONE (14:47)
[2025-02-09] MEDS ORDERED: FENTANYL CITR 100 MCG/2 ML ONE (14:47)
--- NOTE | 2025-02-09 15:47 | RAD REPORT ---
EXAMINATION: Shoulder 1 View VIEWS: As above CLINICAL INDICATION: Female, 79 years old. post reduction COMPARISON: Same-day IMPRESSION: Relocated left shoulder. No fracture identified on this single view.
--- NOTE | 2025-02-09 16:00 | ER ---
Nurse's Notes [facility] Name: Malgorzata Vizcarra Age: 79 yrs Sex: Female : 1945 Arrival Date: 02/09/2025 Time: 13:03 Bed 4 Private MD: Diagnosis: Other dislocation of left shoulder joint Presentation: 02/09 13:11 Chief complaint: Patient states: "I was inside a hot tub cleaning and I slipped and aa5 fell". pt c/o pain to left shoulder radiating down left arm. Coronavirus screen: At this time, the client does not indicate any symptoms associated with coronavirus-19. Ebola Screen: Patient denies travel to an Ebola-affected area in the 21 days before illness onset. Initial Sepsis Screen: Does the patient meet any 2 criteria? No. Patient's initial sepsis screen is negative. Does the patient have a suspected source of infection? No. Patient's initial sepsis screen is negative. Risk Assessment: Do you want to hurt yourself or someone else? Patient reports no desire to harm self or others. Onset of symptoms was February 09, 2025. 13:11 Acuity: IVORY 3 aa5 13:11 Method Of Arrival: Wheelchair aa5 Triage Assessment: 15:00 General: Appears uncomfortable. Injury Description: Deformity sustained to left iw shoulder and posterior aspect of left shoulder. Historical: - Allergies: 13:13 No Known Allergies; aa5 - PMHx: 13:12 High Cholesterol; restless leg syndrome; aa5 - PSHx: 13:12 Cholecystectomy; knee; right foot; Shoulder; Total abdominal hysterectomy; aa5 - Immunization history:: Adult Immunizations unknown. - Infectious Disease History:: Denies. - Social history:: Smoking status: Patient reports the use of cigarette tobacco products. Screenin:20 [facility] ED Fall Risk Assessment (Adult) History of falling in the last 3 months, iw including since admission Yes- single mechanical fall (1 pt) Confusion or Disorientation No (0 pts) Intoxicated or Sedated No (0 pts) Impaired Gait No (0 pts) Mobility Assist Device Used No (0 pt) Altered Elimination No (0 pt) Score/Fall Risk Level 0 - 2 = Low Risk Oriented to surroundings, Maintained a safe environment. Abuse screen: Denies threats or abuse. Denies injuries from another. Nutritional screening: No deficits noted. Tuberculosis screening: Assessment: 13:50 General: Appears uncomfortable, Behavior is anxious. Pain: Complains of pain in iw anterior aspect of left shoulder and posterior aspect of left shoulder Pain currently is 10 out of 10 on a pain scale. Neuro: Level of Consciousness is awake, alert, obeys commands, Oriented to person, place, time, situation. Respiratory: Respiratory effort is even, unlabored, Respiratory pattern is regular, symmetrical. Derm: Skin is intact, is fragile, is thin. Musculoskeletal: Range of motion: limited in left shoulder Bony deformity noted of anterior aspect of left shoulder and posterior aspect of left shoulder. 14:34 Reassessment: Patient appears in no apparent distress at this time. Patient and/or hb family updated on plan of care and expected duration. Pain level reassessed. Patient is alert, oriented x 3, equal unlabored respirations, skin warm/dry/pink. 15:00 Neuro: Walton Agitation-Sedation Scale (RASS): 0 - Alert and Calm. iw 15:18 Neuro: Walton Agitation-Sedation Scale (RASS): -3 Moderate Sedation. iw 15:20 Neuro: Walton Agitation-Sedation Scale (RASS): -3 Moderate Sedation. iw 15:30 Neuro: Walton Agitation-Sedation Scale (RASS): -2 Light sedation. iw 15:35 Neuro: Walton Agitation-Sedation Scale (RASS): -1 Drowsy Level of Consciousness is iw obeys commands. Respiratory:. Respiratory: Respiratory effort is even, unlabored, Respiratory pattern is regular, symmetrical. 15:50 Reassessment: Patient appears in no apparent distress at this time. Patient and/or iw family updated on plan of care and expected duration. Pain level reassessed. Patient is alert, oriented x 3, equal unlabored respirations, skin warm/dry/pink. Patient states feeling better. Patient states symptoms have improved. Vital Signs: 13:11 BP 148 / 79; Pulse 69; Resp 20 S; Temp 97.5(TE); Pulse Ox 95% on R/A; Weight 69.85 kg aa5 (R); Height 5 ft. 3 in. (R); 15:04 BP 158 / 99; Pulse 73; Resp 18; Pulse Ox 96% on 2 lpm NC; iw 15:27 BP 116 / 77; Pulse 80; Resp 16; Pulse Ox 98% on 4 lpm NC; iw 13:11 Body Mass Index 27.28 (69.85 kg, 160.02 cm) aa5 Vitals: 15:04 Cardiac Rhythm Assessment Regular. iw ED Course: 13:07 Patient arrived in ED. im 13:08 Shweta Hackett FNP-C is PHCP. kb 13:08 Ralph Licona MD is Attending Physician. kb 13:11 Triage completed. aa5 13:11 Arm band placed on. aa5 13:19 Bernarda Silva, RN is Primary Nurse. iw 14:18 Humerus Left XRAY In Process Unspecified. EDMS 14:18 Shoulder Left (2 View) XRAY In Process Unspecified. EDMS 14:30 Inserted saline lock: 22 gauge in right antecubital area, using aseptic technique. iw Flushed with 10 mL NS. 14:35 Patient has correct armband on for positive identification. Bed in low position. Call hb light in reach. Provided Education on: tests, result times. 14:58 Client placed on continuous cardiac and pulse oximetry monitoring. NIBP monitoring iw applied. director of consumer affairs on. Pulse ox on. 14:58 Oxygen administration via nasal cannula \\T\\ 2L/min. iw 15:03 Consent for conscious sedation explained by staff, explained by physician, signed by iw patient. 15:18 Assist provider with reduction of left shoulder using manipulation, Set up for iw procedure. Performed by Ralph Licona MD Immobilized with shoulder immobilizer Patient tolerated well. 15:41 XRAY Shoulder (1 View) In Process Unspecified. EDMS 16:05 IV discontinued, intact, bleeding controlled, No redness/swelling at site. Pressure iw dressing applied. Administered Medications: 13:21 Drug: Ketorolac IM 30 mg IM once Route: IM; Site: right deltoid; aa5 14:25 Follow up: Response: No adverse reaction; Pain is unchanged, physician notified iw 13:21 Drug: HYDROcodone-acetaminophen PO 5 mg-325 mg 1 tabs PO once Route: PO; aa5 14:21 Follow up: Response: No adverse reaction; Pain is unchanged, physician notified iw 14:57 Drug: fentaNYL (PF) IVP 50 mcg IVP once Route: IVP; Site: right antecubital; iw 15:15 Follow up: Response: No adverse reaction; Pain is decreased iw 14:58 Drug: Ondansetron IVP 4 mg IVP once; over 2 minutes Route: IVP; Site: right antecubital;iw 15:15 Follow up: Response: No adverse reaction iw 15:18 Drug: Propofol IVP 100 mg IVP once; Document RASS score. {Note: gave 50 mg total .} iw Route: IVP; Site: right antecubital; 15:19 Follow up: Response: No adverse reaction; RASS: Moderate sedation (-3) iw Medication: 14:35 VIS not applicable for this client. hb Outcome: 15:59 Discharge ordered by . negro 16:05 Discharged to home via wheelchair, with friend, iw 16:05 Condition: good 16:05 Discharge instructions given to patient, friend, Instructed on discharge instructions, follow up and referral plans. medication usage, Demonstrated understanding of instructions, follow-up care, medications, Prescriptions given X 1, 16:06 Patient left the ED. iw Signatures: Dispatcher [employer] EDMS Shweta Hackett, [employer]-C [employer]ING [employer]-Ckb Bernarda Silva RN RN Eunice Jimenez RN RN aa5 Odalys Haque RN RN Violette Rahman Corrections: (The following items were deleted from the chart) 15:37 15:18 Neuro: Walton Agitation-Sedation Scale (RASS): -2 Light sedation iw iw
--- NOTE | 2025-02-09 16:00 | EDPHYS ---
Physician Documentation [facility] Name: Malgorzata Vizcarra Age: 79 yrs Sex: Female : 1945 Arrival Date: 02/09/2025 Time: 13:03 Bed 4 Private MD: ED Physician Ralph Licona HPI: 02/09 15:35 This 79 yrs old Female presents to ER via Wheelchair with complaints of Arm Injury. kb 15:35 Patient is a 79-year-old female who presents for left shoulder pain. Patient states she kb was cleaning a hot tub and fell forward into the hot tub injuring left shoulder. Denies any other injuries or pain. Denies any head or LOC.. Historical: - Allergies: 13:13 No Known Allergies; aa5 - PMHx: 13:12 High Cholesterol; restless leg syndrome; aa5 - PSHx: 13:12 Cholecystectomy; knee; right foot; Shoulder; Total abdominal hysterectomy; aa5 - Immunization history:: Adult Immunizations unknown. - Infectious Disease History:: Denies. - Social history:: Smoking status: Patient reports the use of cigarette tobacco products. ROS: 15:35 Constitutional: As per HPI kb Exam: 15:35 Constitutional: This is a well developed, well nourished patient who is awake, alert, kb and in no acute distress. Head/Face: Normocephalic, atraumatic. ENT: Moist Mucous membranes Cardiovascular: Regular rate Respiratory: Respirations even and unlabored. No increased work of breathing. Talking in full sentences Skin: Warm, dry with normal turgor. Normal color. Neuro: Awake and alert, GCS 15, oriented to person, place, time, and situation. 15:35 Musculoskeletal/extremity: Extremities: grossly normal except: noted in the anterior aspect of left shoulder: decreased ROM, deformity, pain, tenderness, ROM: limited active range of motion, Circulation is intact in all extremities. Sensation intact. Vital Signs: 13:11 BP 148 / 79; Pulse 69; Resp 20 S; Temp 97.5(TE); Pulse Ox 95% on R/A; Weight 69.85 kg aa5 (R); Height 5 ft. 3 in. (R); 15:04 BP 158 / 99; Pulse 73; Resp 18; Pulse Ox 96% on 2 lpm NC; iw 15:27 BP 116 / 77; Pulse 80; Resp 16; Pulse Ox 98% on 4 lpm NC; iw 13:11 Body Mass Index 27.28 (69.85 kg, 160.02 cm) aa5 Procedures: 15:22 Reduction: of the left shoulder, using traction, manipulation, Immobilized with rn shoulder immobilizer. Patient tolerated well. Post reduction film - reveals normal alignment. Procedural sedation: Pre-procedure assessment: the patient has been NPO 4 hour(s) prior to arrival, ASA physical classification: I - healthy, no underlying organic disease, Airway assessment: able to hyperextend neck, able to maintain airway, can open mouth without difficulty, Monitoring during procedure: compliance monitor, continuous pulse oximetry, nurse at bedside at all times, Medications employed: propofol 50mg, Alternatives to procedural sedation discussed Post-procedure assessment: the patient is mildly sedated, Respiratory status: even and unlabored, a reversal agent was not used, Start time of procedure 1517, finished time of procedure 1520.. MDM: 13:08 Medical Screening Exam initiated kb 15:35 Differential diagnosis: dislocation, closed fracture, contusion. Data reviewed: vital kb signs, nurses notes. Historians other than the Patient: Family Member: Family member. 15:46 Independent interpretation of the following test(s) in the Emergency Department X-Ray: kb My interpretation is Dislocated shoulder on initial x-rays, postreduction x-ray shows reduction of dislocation.. 15:46 Counseling: I had a detailed discussion with the patient and/or guardian regarding the kb historical points, exam findings, and any diagnostic results supporting the discharge/admit diagnosis, radiology results, the need for outpatient follow up, a orthopedic surgeon, to return to the emergency department if symptoms worsen or persist or if there are any questions or concerns that arise at home. 02/09 13:12 Order name: Humerus Left XRAY; Complete Time: 14:31 kb 02/09 13:12 Order name: Shoulder Left (2 View) XRAY; Complete Time: 14:29 kb 02/09 15:22 Order name: XRAY Shoulder (1 View); Complete Time: 15:49 rn Administered Medications: 13:21 Drug: Ketorolac IM 30 mg IM once Route: IM; Site: right deltoid; aa5 14:25 Follow up: Response: No adverse reaction; Pain is unchanged, physician notified iw 13:21 Drug: HYDROcodone-acetaminophen PO 5 mg-325 mg 1 tabs PO once Route: PO; aa5 14:21 Follow up: Response: No adverse reaction; Pain is unchanged, physician notified iw 14:57 Drug: fentaNYL (PF) IVP 50 mcg IVP once Route: IVP; Site: right antecubital; iw 15:15 Follow up: Response: No adverse reaction; Pain is decreased iw 14:58 Drug: Ondansetron IVP 4 mg IVP once; over 2 minutes Route: IVP; Site: right antecubital;iw 15:15 Follow up: Response: No adverse reaction iw 15:18 Drug: Propofol IVP 100 mg IVP once; Document RASS score. {Note: gave 50 mg total .} iw Route: IVP; Site: right antecubital; 15:19 Follow up: Response: No adverse reaction; RASS: Moderate sedation (-3) iw Disposition Summary: 02/09/25 15:59 Discharge Ordered Notes: Location: Home kb Condition: Stable kb Diagnosis - Other dislocation of left shoulder joint kb Followup: kb - With: Emergency Department - When: As needed - Reason: Worsening of condition Followup: kb - With: Private Physician - When: 2 - 3 days - Reason: Recheck today's complaints, Continuance of care, Re-evaluation by your physician Discharge Instructions: - Discharge Summary Sheet kb - Shoulder Dislocation, [id number] kb Forms: - Medication Reconciliation Form kb - Antibiotic Education kb - Prescription Opioid Use kb - Patient Portal Instructions kb - Leadership Thank You Letter kb Prescriptions: - Tramadol 50 mg Oral Tablet - take 1 tablet ORAL route every 8 hours as needed; 12 tablet; Refills: 0, kb Product Selection Permitted Addendum: 02/11/2025 09:03 Co-signature as Attending Physician, Ralph Licona MD I reviewed the patient's care r n provided by the Advanced Practice Provider and agree with the diagnosis and treatment plan. Signatures: Dispatcher [employer] Shweta Greco FNP-C FNP-Bernarda Mariscal, RN Ralph Lee MD MD rn Calderon, Audri, DUTCH RN aa5 Corrections: (The following items were deleted from the chart) 02/09 13:12 13:12 Humerus Left+RAD.[email or web address].[email or web address] ordered. NESC EDMS 13:12 13:12 Shoulder Left 2 View+[email or web address].BRZ ordered. EDMS EDMS 16:03 15:22 Procedural sedation: Pre-procedure assessment: the patient has been NPO 4 hour(s) rn prior to arrival, ASA physical classification: I - healthy, no underlying organic disease, Airway assessment: able to hyperextend neck, able to maintain airway, can open mouth without difficulty, Monitoring during procedure: compliance monitor, continuous pulse oximetry, nurse at bedside at all times, Medications employed: propofol 50mg, Alternatives to procedural sedation discussed Post-procedure assessment: the patient is mildly sedated, Respiratory status: even and unlabored, a reversal agent was not used, rn
[2025-02-11 19:16] VITALS: TEMP 97.5
[2025-02-11 19:18] VITALS: BP 116/77; O2SAT 98
== END 2025-02-09 16:06 | disposition home or self-care (01) ==
LOC: ER 13:03
DX: S43.085A Other dislocation of left shoulder joint, initial encounter (principal); W18.30XA Fall on same level, unspecified, initial encounter; Z72.0 Tobacco use
CPT/HCPCS: 73020; 73060; 73030; 96375; 96372; 96374; 99285; 23655; J2704; J3010; J2405; J7040